=== PATIENT | male | born 1985 | race Caucasian/White ===

== ENCOUNTER → 2016-06-05 | Outpatient (CLI) | payer BC ==
[~2016-06-05] MED LIST: KLONOPIN 1MG1 MG PO
== END ==
LOC: BHSO 10:03
DX: F33.1 Major depressive disorder, recurrent, moderate (principal)

== ENCOUNTER → 2016-06-06 | Outpatient (CLI) | payer BC | LOC: BHSO 08:59 | DX: F41.1 Generalized anxiety disorder (principal) ==

== ENCOUNTER → 2016-06-16 | Outpatient (CLI) | payer BC | LOC: BHSO 09:00 | DX: F41.1 Generalized anxiety disorder (principal) ==

== ENCOUNTER → 2016-07-21 | Outpatient (CLI) | payer BC | LOC: BHSO 09:02 | DX: F41.1 Generalized anxiety disorder (principal) ==

== ENCOUNTER → 2016-08-04 | Outpatient (CLI) | payer BC | LOC: BHSO 09:02 | DX: F41.1 Generalized anxiety disorder (principal) ==

== ENCOUNTER → 2016-08-22 | Outpatient (CLI) | payer BC | LOC: BHSO 08:59 | DX: F41.1 Generalized anxiety disorder (principal) ==

== ENCOUNTER → 2016-08-25 | Outpatient (CLI) | payer BC | LOC: BHSO 09:02 | DX: F41.1 Generalized anxiety disorder (principal) ==

== ENCOUNTER → 2016-09-08 | Outpatient (CLI) | payer BC | LOC: BHSO 09:14 | DX: F41.1 Generalized anxiety disorder (principal) ==

== ENCOUNTER → 2016-09-23 | Outpatient (CLI) | payer BC | LOC: BHSO 09:11 | DX: F41.1 Generalized anxiety disorder (principal) ==

== ENCOUNTER → 2016-10-13 | Outpatient (CLI) | payer BC | LOC: BHSO 09:06 | DX: F41.1 Generalized anxiety disorder (principal) ==

== ENCOUNTER → 2016-11-04 | Outpatient (CLI) | payer BC | LOC: BHSO 08:57 | DX: F41.1 Generalized anxiety disorder (principal) ==

== ENCOUNTER → 2016-11-26 | Outpatient (CLI) | payer BC | LOC: BHSO 09:07 | DX: F41.1 Generalized anxiety disorder (principal) ==

== ENCOUNTER 2017-02-01 21:17 | Emergency (ER) | payer BC ==
[~2017-02-01] VITALS: Ht 190.5 cm; Wt 109.1 kg
[2017-02-01 22:02] LABS: BASO % 0.4 % (0.0-2.0); EOS # 0.2 (0.0-0.7); GRAN # 5.1 (1.4-6.5); HEMATOCRIT 39.6 % (42.0-52.0); HEMOGLOBIN 13.3 g/dl (13.5-18.0); LYMPH # 2.2 (1.2-3.4); LYMPH % 27.7 % (20.0-51.0); MEAN CELL VOLUME 88 fl (80.0-100.0); MEAN CORPUSCULAR HEMOGLOBIN 30 pg (27.0-31.0); MEAN CORPUSCULAR HGB CONC 34 g/dl (33.0-37.0); MEAN PLATELET VOLUME 9.9 fl (7.4-10.4); MONO # 0.5 (0.1-0.6); MONO % 6.7 % (1.7-9.3); PLATELET COUNT 167 K/mm3 (130-400); RED BLOOD COUNT 4.48 M/mm3 (4.20-5.60); REDCELL DISTRIBUTION WIDTH-CV 13.1 % (11.5-14.5); WHITE BLOOD COUNT 8.1 K/mm3 (4.8-10.8)
[2017-02-01 22:14] LABS: ADJUSTED CALCIUM 9.3 mg/dL (8.4-10.2); ALANINE AMINOTRANSFERASE 28 U/L (21-72); ALBUMIN 4.5 gm/dL (3.5-5.0); ALKALINE PHOSPHATASE 49 U/L (50-136); ANION GAP 10 mmol/L (7-16); BILIRUBIN,TOTAL 0.6 mg/dL (0.0-1.0); BLOOD UREA NITROGEN 17 mg/dL (9-20); CALCIUM 9.7 mg/dL (8.4-10.2); CARBON DIOXIDE 28 mmol/L (22-30); CHLORIDE 105 mmol/L (98-107); CREATININE, serum 0.81 mg/dL (0.66-1.25); GLUCOSE 92 mg/dL (74-106); POTASSIUM 4.3 mmol/L (3.4-5.0); SODIUM 142 mmol/L (137-145); TOTAL PROTEIN 7.4 gm/dL (6.4-8.2)
[2017-02-01 22:26] LABS: ACETAMINOPHEN < 10 ug/mL (10-30); SALICYLATE < 1.0 mg/dL
[2017-02-01 22:33] LABS: AMPHETAMINE URINE NEGATIVE; BARBITURATES URINE NEGATIVE; BENZODIAZEPINES URINE NEGATIVE; BUPRENORPHINE URINE NEGATIVE; METHADONE URINE NEGATIVE; OPIATES URINE NEGATIVE; OXYCODONE URINE NEGATIVE; PHENCYCLIDINE URINE NEGATIVE; PROPOXYPHENE URINE NEGATIVE; THC CANNABINOIDS URINE POSITIVE
[2017-02-01] MEDS ORDERED: KLONOPIN 1MG1 MG PO (23:33)
[2017-02-02 01:31] VITALS: BP 116/78; PULSE 71; TEMP 98.1
== END 2017-02-02 01:27 | disposition home or self-care (01) ==
LOC: COL.ER 21:17
PROVIDERS: Nurse Practitioner
DX: F32.9 Major depressive disorder, single episode, unspecified (principal); F41.9 Anxiety disorder, unspecified

== ENCOUNTER 2021-07-29 19:39 | Emergency (ER) | payer OTHER ==
[~2021-07-29] VITALS: Ht 190.5 cm; Wt 136.4 kg
[2021-07-29 19:54] VITALS: TEMP 98.1
[2021-07-29 20:25] LABS: BASO # 0.1 K/mm3 (0.0-0.2); BASO % 0.6 % (0.0-2.0); EOS # 0.2 K/mm3 (0.0-0.7); EOS % 1.6 % (0.0-4.0); GRAN # 6.1 K/mm3 (1.4-6.5); GRAN % 58.3 % (42.2-75.2); HEMATOCRIT 41.4 % (42.0-52.0); HEMOGLOBIN 13.8 g/dl (13.5-18.0); LYMPH # 3.2 K/mm3 (1.2-3.4); LYMPH % 30.7 % (20.0-51.0); MEAN CELL VOLUME 86 fl (80.0-100.0); MEAN CORPUSCULAR HEMOGLOBIN 29 pg (27-31); MEAN CORPUSCULAR HGB CONC 33 g/dl (33.0-37.0); MEAN PLATELET VOLUME 10.5 fl (7.4-10.4); MONO # 0.9 K/mm3 (0.1-0.6); MONO % 8.5 % (1.7-9.3); PLATELET COUNT 226 K/mm3 (130-400); RED BLOOD COUNT 4.84 M/mm3 (4.20-5.60); REDCELL DISTRIBUTION WIDTH-CV 13.4 % (11.5-14.5)
[2021-07-29 20:44] LABS: ALBUMIN 4.4 gm/dL (3.5-5.0); BILIRUBIN,TOTAL 0.3 mg/dL (0.2-1.2); CALCIUM 9.2 mg/dL (8.4-10.2); CREATININE, serum 1.12 mg/dL (0.72-1.25); POTASSIUM 3.2 mmol/L (3.5-4.5); TOTAL PROTEIN 7.7 gm/dL (6.2-8.1)
[2021-07-29 21:14] LABS: COLLECTION METHOD CLEAN CATCH
[2021-07-29 21:35] LABS: MUCOUS Present (NOT PRESENT); PH 6 (5-8); SQUAMOUS EPITHELIAL None Seen /hpf (0-10); URINE APPEARANCE Clear (CLEAR/HAZY); URINE BACTERIA None Seen /hpf (NONE SEEN); URINE BILIRUBIN Negative (NEGATIVE); URINE BLOOD 3+ (NEGATIVE); URINE COLOR Yellow (YELLOW); URINE GLUCOSE Negative (NEGATIVE); URINE KETONE Negative (NEGATIVE); URINE LEUKOCYTE ESTERASE Negative (NEGATIVE); URINE NITRATE Negative (NEGATIVE); URINE PROTEIN(semi-quant) Negative (NEGATIVE); URINE RBC >50 /hpf (0-2); URINE UROBILINOGEN Negative (NEGATIVE)
[2021-07-29] MEDS ORDERED: ZOFRAN ODT4 MG PO (21:44)
[2021-07-29] MEDS ORDERED: TORADOL 10MG TA10 MG PO (21:44)
[2021-07-29 21:56] VITALS: BP 131/78; PULSE 75
== END 2021-07-29 21:56 | disposition home or self-care (01) ==
LOC: COL.ER 19:39
PROVIDERS: Emergency Medicine
DX: N13.2 Hydronephrosis with renal and ureteral calculous obstruction (principal); E87.6 Hypokalemia
CPT/HCPCS: J1885; J2405; J7030; Q9967